=== PATIENT | male | born 1955 | race Asian ===

== ENCOUNTER 2017-11-01 23:38 | Inpatient (IN) | payer BC ==
[~2017-11-01] VITALS: Ht 172.7 cm; Wt 68.0 kg
[2017-11-01 23:38] VITALS: BP_SYST 87
[2017-11-02] VITALS (13 sets, daily range): BP systolic 64–113
[2017-11-02] MEDS ORDERED: ALBUTEROL SULFATE 0.083% 2.5 MG/3 ML VIAL.NEB INH ONE (00:15)
[2017-11-02] MEDS ORDERED: AMPICILLIN SODIUM/SULBACTAM NA 3 GM VIAL IM ONE (00:15)
[2017-11-02] MEDS ORDERED: metroNIDAZOLE 500 mg/NS 100 ML IV ONE (00:15)
[2017-11-02] MEDS ORDERED: NS 1000 ML BAG IV ONE (00:15)
[2017-11-02] MEDS ORDERED: IPRATROPIUM BROM 0.5 MG/2.5 ML VIAL.NEB (ATROVENT) INH ONE (00:15)
[2017-11-02] MEDS ORDERED: ONDANSETRON HCL 4 MG/2 ML VIAL IVP ONE (00:30)
[2017-11-02] MEDS ORDERED: fentaNYL CITRATE/PF 100 MCG/2 ML AMP IVP ONE (00:30)
[2017-11-02 00:34] LABS: BILIRUBIN,URINE NEGATIVE (NEGATIVE); BLOOD, URINE NEGATIVE (NEGATIVE); CLARITY/URINE CLEAR (CLEAR); COLOR,URINE YELLOW (YELLOW); GLUCOSE,URINE NEGATIVE (NEGATIVE); KETONES,URINE NEGATIVE (NEGATIVE); LEUKOCYTE ESTERASE ,URINE NEGATIVE (NEGATIVE); NITRITE, URINE NEGATIVE (NEGATIVE); PH,URINE 6.5 (5.0-8.0); PROTEIN URINE NEGATIVE (NEGATIVE)
[2017-11-02 00:40] LABS: EOSINOPHILS % (AUTO) 0.1 % (0.0-4.0); HEMOGLOBIN 10.7 g/dL (14.0-18.0); LYMPHOCYTES # (AUTO) 0.8 K/uL (1.0-5.5); LYMPHOCYTES % (AUTO) 13.2 % (20.5-51.5); MONOCYTES # (AUTO) 0.2 K/uL (0.0-1.0)
[2017-11-02 00:43] LABS: BASOPHILS % (AUTO) 0.5 % (0.0-2.0); HEMATOCRIT 31.8 % (36-54); MEAN CORPUSCULAR HEMOGLOBIN 31 pg (27-31); MEAN CORPUSCULAR HGB CONC 34 % (32-36); MEAN CORPUSCULAR VOLUME 93 fL (79.0-98.0); MONOCYTES % (AUTO) 3.9 % (1.7-9.3); NEUTROPHILS % (AUTO) 82.3 % (40.0-70.0); PLATELET COUNT (AUTO) 237 K/uL (130-430); RED BLOOD CELL COUNT(AUTO) 3.44 MIL/uL (4.2-6.2); RED CELL DISTRIBUTION WIDTH 14.4 % (9.0-15.0)
[2017-11-02] MEDS ORDERED: LORA-259 PEG (00:47)
[2017-11-02 00:50] LABS: CALCIUM 7.2 mg/dL (8.4-11.0); CREATININE 1.4 mg/dL (0.55-1.30); POTASSIUM 3.7 mmol/L (3.5-5.1)
[2017-11-02] MEDS ORDERED: DEC1 PEG (00:51)
[2017-11-02] MEDS ORDERED: DEC1 PO (00:52)
[2017-11-02 00:53] LABS: INR 1.2 (0.80-1.20); PROTHROMBIN TIME 11.9 SECS (9.5-12.5)
[2017-11-02] MEDS ORDERED: DEXA1TAB PEG (00:54)
[2017-11-02 00:56] LABS: ALBUMIN 1.9 g/dL (3.4-4.8); TOTAL BILIRUBIN 0.9 mg/dL (0.0-1.0)
[2017-11-02] MEDS ORDERED: NOREPINEPHRINE 4 MG/4 ML VIAL IV ONE (00:58)
[2017-11-02] MEDS ORDERED: NOREPINEPHRINE BITARTRATE 4 MG in NS 246 ML IV ONE (01:00)
[2017-11-02] MEDS ORDERED: LOVI40 SQ (01:03)
[2017-11-02] MEDS ORDERED: ENAL5TAB85 PEG (01:03)
[2017-11-02] MEDS ORDERED: FOLI-43 PEG (01:08)
[2017-11-02] MEDS ORDERED: FOLI-43 PO (01:09)
[2017-11-02] MEDS ORDERED: LEVE100S PEG (01:11)
[2017-11-02] MEDS ORDERED: LOSA50TA20 PEG (01:12)
[2017-11-02] MEDS ORDERED: MORP10SO PEG ×2 (01:13→01:15)
[2017-11-02] MEDS ORDERED: D5NS 1,000 ML IV SCH (01:15)
[2017-11-02] MEDS ORDERED: ESOM20SU PEG (01:15)
[2017-11-02] MEDS ORDERED: MORPHINE 2 MG/ML INJ. SYRINGE IVP PRN (01:15)
[2017-11-02] MEDS ORDERED: TAMS-11 PEG (01:16)
[2017-11-02] MEDS ORDERED: MORPHINE 4 MG/ML INJ. SYRINGE IVP PRN (03:00)
[2017-11-02] MEDS ORDERED: LORazepam 2 MG/ML VIAL IVP PRN (03:00)
[2017-11-02] MEDS ORDERED: MORPHINE 4 MG/ML INJ. SYRINGE ONE (03:15)
[2017-11-02] MEDS ORDERED: FUROSEMIDE 40 MG/4 ML VIAL IVP SCH (09:00)
== END 2017-11-02 11:00 | disposition expired | DRG 871 ==
LOC: SED 23:38 → SIC 11-02 01:13
PROVIDERS: ADMIT General Practice; ATTEND General Practice
PROC: 5A09357 Assistance with Respiratory Ventilation, Less than 24 Consecutive Hours, Continuous Positive Airway Pressure (ICD-10-PCS; principal; 2017-11-02)
PROC: 04HQ33Z Insertion of Infusion Device into Left Anterior Tibial Artery, Percutaneous Approach (ICD-10-PCS; 2017-11-02)
PROC: 04HP33Z Insertion of Infusion Device into Right Anterior Tibial Artery, Percutaneous Approach (ICD-10-PCS; 2017-11-02)
DX: A41.9 Sepsis, unspecified organism (principal); J96.00 Acute respiratory failure, unspecified whether with hypoxia or hypercapnia; I46.9 Cardiac arrest, cause unspecified; E43 Unspecified severe protein-calorie malnutrition; N17.0 Acute kidney failure with tubular necrosis; R57.1 Hypovolemic shock; R65.21 Severe sepsis with septic shock; G93.41 Metabolic encephalopathy; J69.0 Pneumonitis due to inhalation of food and vomit; C79.31 Secondary malignant neoplasm of brain; C79.51 Secondary malignant neoplasm of bone; E87.1 Hypo-osmolality and hyponatremia; F41.9 Anxiety disorder, unspecified; G89.29 Other chronic pain; I10 Essential (primary) hypertension; G40.909 Epilepsy, unspecified, not intractable, without status epilepticus; Z51.5 Encounter for palliative care; Z66 Do not resuscitate; Z87.440 Personal history of urinary (tract) infections; Z79.899 Other long term (current) drug therapy; Z85.118 Personal history of other malignant neoplasm of bronchus and lung; Z93.1 Gastrostomy status; Z68.22 Body mass index [BMI] 22.0-22.9, adult
CPT/HCPCS: 36415; 36600; 71010; 80053; 81003; 82803-TC; 83605; 83874; 85025; 85610-TC; 85730-TC; 87040-TC; 87081; 87086; 93005; 94640; 94660; 96365; 96372; 96375; 99291; 99292; J0295; J1940; J2270; J2405; J3010; J3490; J7030; J7042; J7060